=== PATIENT | female | born 1965 | race Caucasian/White ===

== ENCOUNTER → 2020-09-27 | Day surgery (SDC) | payer OTHER ==
[~2020-09-27] MED LIST: ADVAIR 100-501 EACH INH; ALENDRONATE SOD70 MG PO; AZELASTINE205.5 MCG/; BENTYL10 MG PO; CALCIUM D PO; CALCIUM600 MG PO; CETIRIZINE HCL10 M1 PO; CLARITIN10 MG PO; CRANBERRY500 M3 PO; DITROPAN5 MG PO; FLORAJEN PO; FLUTIC INH; GLUCOSAMINE &1 EACH PO; HCTZ12.5 MG PO; LEVAQUIN750 MG PO; LEVOTHYROXINE75 MC2 PO; LINZESS145 MCG PO; LIPITOR20 MG PO; METHENAM HIP PO; NASAL ALLERGY16.9 ML INH; NEURONTIN300 MG PO; NITROFURANTOIN100 MG PO; OLOPATADINE; PERCOCET 5-3251 EACH PO; PREVACID15 MG PO; PREVACID30 M1 PO; PRILOSEC20 MG PO; SALINE INH; SINGULAIR10 MG PO; SYNTHROID50 MC1 PO; SYNTHROID50 MCG PO; TIZANIDINE HCL4 M1 PO; TRAZODONE 50MG50 MG PO; TRIAMCINOLON; VENTOLIN HFA18 GM INH; VIT D PO; VIT D3 PO; VITAMIN D31000 UNIT PO; VITAMIN D32000 UNI1 PO; ZESTRIL5 MG PO; ZOCOR40 MG PO; ZOFRAN4 MG PO; ZYRTEC10 M3 PO; [UNRECOGNIZED DRUG - OTHER] VG
== END | disposition home or self-care (01) ==
LOC: FAS 08:29
DX: D12.3 Benign neoplasm of transverse colon (principal); K21.00 Gastro-esophageal reflux disease with esophagitis, without bleeding; K64.0 First degree hemorrhoids; K44.9 Diaphragmatic hernia without obstruction or gangrene; K57.30 Diverticulosis of large intestine without perforation or abscess without bleeding; K64.4 Residual hemorrhoidal skin tags; K29.60 Other gastritis without bleeding; K22.4 Dyskinesia of esophagus; I12.9 Hypertensive chronic kidney disease with stage 1 through stage 4 chronic kidney disease, or unspecified chronic kidney disease; N18.9 Chronic kidney disease, unspecified; G47.8 Other sleep disorders; E78.5 Hyperlipidemia, unspecified; E03.9 Hypothyroidism, unspecified; E66.9 Obesity, unspecified; Z86.010 Personal history of colon polyps; Z83.71 Family history of colonic polyps; Z88.8 Allergy status to other drugs, medicaments and biological substances; Z20.822 Contact with and (suspected) exposure to COVID-19; Z91.040 Latex allergy status; Z79.899 Other long term (current) drug therapy; Z68.34 Body mass index [BMI] 34.0-34.9, adult; Z98.890 Other specified postprocedural states
CPT/HCPCS: 88305; J2250; J2704; J7120

== ENCOUNTER 2021-12-05 22:10 | Day surgery (SDCO) | payer OTHER ==
[~2021-12-05] VITALS: Ht 172.7 cm; Wt 100.2 kg
[2021-12-05 23:10] LABS: BASOPHIL 0.3 % (0-2); HCT 41.7 % (37.0-47.0); HGB 13.8 g/dl (12.5-16.0); LYMPHOCYTE 22.6 % (15-48); MCH 28.3 pg (25.0-31.0); MCHC 33.1 g/dL (32.0-36.0); MCV 85.6 fL (78.0-100.0); MONOCYTE 8.8 % (0-12); NEUTROPHIL 65.9 % (41-80); NRBC 0; PLT 291 K/uL (150-400); RBC 4.87 M/uL (4.20-5.40); RDW 13.5 % (11.5-14.0); WBC 9.6 K/uL (4.0-10.5)
[2021-12-05 23:30] LABS: ALBUMIN 3.3 g/dL (3.4-5.0); BILIRUBIN - TOTAL 0.4 mg/dL (0.2-1.0); BUN/CREAT RATIO (CALC) 17.7 RATIO; CREATININE 0.96 mg/dL (0.51-0.95); GLOBULIN (CALCULATION) 3.4 g/dL; POTASSIUM 3.8 mmol/L (3.5-5.1); TOTAL PROTEIN 6.7 g/dL (6.4-8.2)
[2021-12-05 23:33] LABS: BILIRUBIN NEGATIVE (NEGATIVE); BLOOD NEGATIVE Ery/uL (NEGATIVE); CLARITY CLEAR (CLEAR); COLOR YELLOW (YELLOW); GLUCOSE (U) NORMAL (NORMAL); LEUKOCYTES TRACE Leu/uL (NEGATIVE); NITRITE NEGATIVE (NEGATIVE); PROTEIN NEGATIVE (NEGATIVE); SPECIFIC GRAVITY >=1.030 (1.001-1.030); UROBILINOGEN 0.2 mg/dL (0.2-1.0)
[2021-12-05 23:35] LABS: MUCOUS MODERATE
[2021-12-06] MEDS ORDERED: LISINOPRIL10 MG PO (04:27)
[2021-12-06] MEDS ORDERED: LASIX20 MG PO (04:27)
[2021-12-06] MEDS ORDERED: VENTOLIN HFA18 GM PO (04:29)
[2021-12-06] MEDS ORDERED: ADVAIR HFA 45-218 GM PO (04:30)
[2021-12-06] MEDS ORDERED: POTASSIUM CHLO20 ME2 PO (04:31)
[2021-12-07 06:37] LABS: BASOPHIL 0.3 % (0-2); EOSINOPHIL 2.4 % (0-5); HGB 12.8 g/dl (12.5-16.0); LYMPHOCYTE 22.8 % (15-48); MCH 28.4 pg (25.0-31.0); MCHC 32.8 g/dL (32.0-36.0); MCV 86.7 fL (78.0-100.0); MONOCYTE 8.2 % (0-12); MPV 9.1 fL (6.0-9.5); NEUTROPHIL 65.8 % (41-80); NRBC 0; PLT 257 K/uL (150-400); RDW 13.7 % (11.5-14.0); WBC 8.9 K/uL (4.0-10.5)
[2021-12-07 08:05] LABS: BUN/CREAT RATIO (CALC) 11.8 RATIO; CREATININE 0.85 mg/dL (0.51-0.95); POTASSIUM 4.8 mmol/L (3.5-5.1)
--- NOTE | 2021-12-07 15:56 | NUR ---
CARE COORDINATION DEPARTMENT CALLED PT'S PHARMACY ([facility] IN [place]) INQUIRING COST OF ELIQUIS AND WAS TOLD COPAY FOR 10 MG ELIQUIS WOULD BE $9.53.
[2021-12-08] MEDS ORDERED: ELIQUIS5 MG PO (10:08)
[2021-12-08] MEDS ORDERED: PERCOCET 5-3251 EACH PO (10:10)
== END 2021-12-08 11:44 | disposition home or self-care (01) ==
LOC: FER 22:10 → FMS 12-06 02:22
PROVIDERS: Emergency Medicine; Internal Medicine; ADMIT Internal Medicine
DX: I26.94 Multiple subsegmental thrombotic pulmonary emboli without acute cor pulmonale (principal); R06.09 Other forms of dyspnea; R07.89 Other chest pain; I12.9 Hypertensive chronic kidney disease with stage 1 through stage 4 chronic kidney disease, or unspecified chronic kidney disease; N18.30 Chronic kidney disease, stage 3 unspecified; E03.9 Hypothyroidism, unspecified; J44.9 Chronic obstructive pulmonary disease, unspecified; M19.90 Unspecified osteoarthritis, unspecified site; K21.9 Gastro-esophageal reflux disease without esophagitis; F41.9 Anxiety disorder, unspecified; Z86.16 Personal history of COVID-19; Z79.899 Other long term (current) drug therapy; Z88.8 Allergy status to other drugs, medicaments and biological substances; Z91.040 Latex allergy status; Z91.048 Other nonmedicinal substance allergy status
CPT/HCPCS: 36415; 71275; 80048; 80053; 81001; 84484; 85025; 85379; 93005; 93970; 94010; 94640; 94667; 94668; 94760; 96372; G0378; J1170; J1650; J2270; J2405; J7030; Q9967